=== PATIENT | male | born 1960 | race African-American/Black ===

== ENCOUNTER 2017-12-15 06:48 | Day surgery (SDC) | payer OTHER ==
[~2017-12-15] VITALS: Ht 172.7 cm; Wt 77.1 kg
[2017-12-15] MEDS ORDERED: FLUO10CA21 PO (07:58)
[2017-12-15] MEDS ORDERED: ASPI81CT89 PO (07:58)
[2017-12-15] MEDS ORDERED: PRAV40TA1 PO (07:58)
[2017-12-15] MEDS ORDERED: BENA20TA PO (07:58)
[2017-12-15] MEDS ORDERED: MIDAZOLAM 2 MG/2 ML VIAL ONE (09:06)
[2017-12-15] MEDS ORDERED: fentaNYL 0.05 MG/ML VIAL ONE (09:06)
[2017-12-15] MEDS ORDERED: KETOROLAC 30 MG/ML VIAL ONE (09:07)
[2017-12-15] MEDS ORDERED: LIDOCAINE 2% 100 MG/5 ML UJET TP ONE (09:07)
== END 2017-12-15 10:18 | disposition home or self-care (01) ==
LOC: MDS 06:48 → MMU 06:49 → MDS 10:18
PROVIDERS: ATTEND Internal Medicine Gastroenterology
DX: Z12.11 Encounter for screening for malignant neoplasm of colon (principal); K21.9 Gastro-esophageal reflux disease without esophagitis; I10 Essential (primary) hypertension; E78.00 Pure hypercholesterolemia, unspecified; K63.89 Other specified diseases of intestine; Z79.82 Long term (current) use of aspirin; Z79.899 Other long term (current) drug therapy; Z98.890 Other specified postprocedural states; Z87.891 Personal history of nicotine dependence
CPT/HCPCS: 45378; J1885; J7030; J2250; J3010